=== PATIENT | male | born 1990 | race Caucasian/White ===

== ENCOUNTER 2016-09-10 19:03 | Emergency (ER) | payer MEDICAID ==
[~2016-09-10] VITALS: Ht 152.4 cm; Wt 70.8 kg
[2016-09-10 19:21] VITALS: BP 175/103; PULSE 103; RESP 18; TEMP 98.3; O2SAT 99
[2016-09-10 20:14] LABS: BASOPHILS % (AUTO) 0.7 % (0.0-2.0); EOSINOPHILS # (AUTO) 0.1 K/uL (0.0-0.4); EOSINOPHILS % (AUTO) 1.9 % (0.0-4.0); HEMATOCRIT 30.7 % (36-54); HEMOGLOBIN 10.3 g/dL (14.0-18.0); LYMPHOCYTES # (AUTO) 1.2 K/uL (1.0-5.5); LYMPHOCYTES % (AUTO) 16.9 % (20.5-51.5); MEAN CORPUSCULAR HEMOGLOBIN 29 pg (27-31); MEAN CORPUSCULAR HGB CONC 34 % (32-36); MEAN CORPUSCULAR VOLUME 88 fL (79.0-98.0); MONOCYTES # (AUTO) 0.3 K/uL (0.0-1.0); MONOCYTES % (AUTO) 4.8 % (1.7-9.3); NEUTROPHILS # (AUTO) 5.5 K/uL (1.8-7.7); NEUTROPHILS % (AUTO) 75.7 % (40.0-70.0); PLATELET COUNT (AUTO) 317 K/uL (130-430); RED CELL DISTRIBUTION WIDTH 13.2 % (9.0-15.0); WHITE BLOOD COUNT (AUTO) 7.1 K/uL (4.8-10.8)
[2016-09-10 20:20] LABS: CALCIUM 8.7 mg/dL (8.4-11.0); CREATININE 1.7 mg/dL (0.55-1.30); POTASSIUM 5.3 mmol/L (3.5-5.1)
[2016-09-10 20:23] LABS: PROTHROMBIN TIME 10.5 SECS (9.5-12.5)
[2016-09-10 20:24] LABS: ALBUMIN 3.4 g/dL (3.4-4.8); TOTAL BILIRUBIN 0.2 mg/dL (0.0-1.0); TOTAL PROTEIN, SERUM 7.8 g/dL (6.4-8.3)
[2016-09-10] MEDS ORDERED: VANCOMYCIN HCL 1,000 MG in NS 250 ML IV ONE (20:45)
[2016-09-10] MEDS ORDERED: ONDANSETRON HCL 4 MG/2 ML VIAL IVP ONE (20:45)
[2016-09-10] MEDS ORDERED: NACL 0.9% 1,000 ML IV ONE (20:45)
[2016-09-10] MEDS ORDERED: VANCOMYCIN HCL 1000 MG/VIAL IV ONE (20:57)
[2016-09-10] MEDS ORDERED: cloNIDine HCL 0.1 MG TABLET PO ONE (21:00)
[2016-09-10] MEDS ORDERED: SODIUM POLYSTYRENE SULFONATE 15 GM/60 ML UDBTL PO ONE (21:00)
[2016-09-11 00:02] VITALS: BP 145/98; PULSE 98; RESP 18; TEMP 98.3; O2SAT 99
== END 2016-09-11 00:02 | disposition home or self-care (01) ==
LOC: MERGE 19:03 → SED 19:03
DX: E11.52 Type 2 diabetes mellitus with diabetic peripheral angiopathy with gangrene (principal); F03.90 Unspecified dementia, unspecified severity, without behavioral disturbance, psychotic disturbance, mood disturbance, and anxiety; Z88.6 Allergy status to analgesic agent; Z88.5 Allergy status to narcotic agent; Z88.8 Allergy status to other drugs, medicaments and biological substances
CPT/HCPCS: 36415; 73630; 80053; 83605; 85025; 85610; 85730; 86140; 87040; 96365; 96366; 96375; 99285; J2405; J3370; J7030; J7050

== ENCOUNTER 2017-02-14 16:44 | Inpatient (IN) | payer MEDICAID ==
[2015-07-09 12:00] VITALS: Ht 160 cm; Wt 67.6 kg
[~2017-02-14] VITALS: Ht 160 cm; Wt 67.6 kg
[2017-02-14 16:51] VITALS: BP 188/100; PULSE 92; RESP 18; TEMP 96.4; O2SAT 94
--- NOTE | 2017-02-14 16:59 | NUR ---
BHUMI Ga at bedside examining patient.
[2017-02-14] MEDS ORDERED: NACL 0.9% 1,000 ML IV ONE (17:01)
--- NOTE | 2017-02-14 17:05 | NUR ---
PER PATIENT HE WAS WALKING AND FELT GENERALIZED SEVERE PAIN SO HE CALLED 911.COMPLAINING OF GENERALIZED PAIN 01/22.NOTED WITH DIABETIC ULCER TO RIGHT FOOT;WITH SMALL OPEN AREA;NO BLEEDING;PERIWOUND IS WHITE;WOUND BED IS PINK;NO DRAINAGE.NO OTHER COMPLAIN/INJURY PER PATIENTOR NOTED
--- NOTE | 2017-02-14 17:20 | NUR ---
TRIED TO INSERT IV BUT FAILED.DIRECTOR OF ENTERPRISE ARCHITECTURE TRIED TO DRAW BLOOD BUT FAILED. INFORMED
--- NOTE | 2017-02-14 18:14 | NUR ---
ENCOURAGED PATIENT TO COLLECT URINE SPECIMEN STATED "NOT NOW,MAYBE LATER"
--- NOTE | 2017-02-14 18:26 | NUR ---
ANOTHER RN TRIED TO INSERT IV AGAIN BUT FAILED
[2017-02-14 19:02] LABS: BASOPHILS % (AUTO) 0.6 % (0.0-2.0); EOSINOPHILS # (AUTO) 0.1 K/uL (0.0-0.4); EOSINOPHILS % (AUTO) 1.6 % (0.0-4.0); HEMATOCRIT 28.4 % (36-54); HEMOGLOBIN 9.4 g/dL (14.0-18.0); LYMPHOCYTES # (AUTO) 1.3 K/uL (1.0-5.5); LYMPHOCYTES % (AUTO) 18.5 % (20.5-51.5); MEAN CORPUSCULAR HEMOGLOBIN 30 pg (27-31); MEAN CORPUSCULAR HGB CONC 33 % (32-36); MEAN CORPUSCULAR VOLUME 89 fL (79.0-98.0); MONOCYTES # (AUTO) 0.2 K/uL (0.0-1.0); MONOCYTES % (AUTO) 3.3 % (1.7-9.3); NEUTROPHILS # (AUTO) 5.3 K/uL (1.8-7.7); PLATELET COUNT (AUTO) 272 K/uL (130-430); RED CELL DISTRIBUTION WIDTH 14.6 % (9.0-15.0); WHITE BLOOD COUNT (AUTO) 6.9 K/uL (4.8-10.8)
--- NOTE | 2017-02-14 19:02 | NUR ---
ANOTHER RN TRIED TO INSERT IV BUT FAILED
--- NOTE | 2017-02-14 19:08 | NUR ---
PATIENT ON BED AWAKE.NO IV SITE.ENDORSED ALL CARE TO LOGGING TRACTOR OPERATOR NURSE
[2017-02-14 19:11] LABS: CALCIUM 9.2 mg/dL (8.4-11.0); CREATININE 1.43 mg/dL (0.55-1.30); POTASSIUM 4.9 mmol/L (3.5-5.1)
[2017-02-14 19:14] LABS: INR 0.9 (0.80-1.20); PROTHROMBIN TIME 9.7 SECS (9.5-12.5)
[2017-02-14 19:15] LABS: ALBUMIN 3.6 g/dL (3.4-4.8); TOTAL BILIRUBIN 0.2 mg/dL (0.0-1.0)
--- NOTE | 2017-02-14 19:21 | NUR ---
Patient refuses to provide urine sample. MD moore
--- NOTE | 2017-02-14 19:25 | NUR ---
Medication reconciliation completed with information provided by -PATIENT STATES "NO HOME MEDS". Any prior medication reconciliation on file was reviewed and corrected.
--- NOTE | 2017-02-14 19:43 | NUR ---
Unable to obtain IV access after multiple attempts. MD moore
[2017-02-14 20:05] LABS: BILIRUBIN,URINE NEGATIVE (NEGATIVE); BLOOD, URINE 1+ (NEGATIVE); CLARITY/URINE CLEAR (CLEAR); COLOR,URINE YELLOW (YELLOW); GLUCOSE,URINE 2+ (NEGATIVE); KETONES,URINE NEGATIVE (NEGATIVE); LEUKOCYTE ESTERASE ,URINE NEGATIVE (NEGATIVE); NITRITE, URINE NEGATIVE (NEGATIVE); PROTEIN URINE 2+ (NEGATIVE); UROBILINOGEN,URINE 0.2 (0.2-1.0)
--- NOTE | 2017-02-14 20:12 | NUR ---
Unable to obtain EJ access by BHUMI Ho after multiple attempts.
--- NOTE | 2017-02-14 20:21 | NUR ---
Patient refuses to provide urine. Admit MD Mills aware
[2017-02-14 20:24] LABS: BACTERIA,URINE RARE /HPF (None Seen); MUCUS,URINE None Seen /LPF (None Seen); RBC,URINE 0-3 /HPF (0-3); WBC,URINE 0-3 /HPF (0-3)
--- NOTE | 2017-02-14 20:32 | NUR ---
Patient will be admitted to care of Dr Mills. Admitted to TELE IN unit. Will go to room 135. Belongings list completed. Summary report printed. Report will be given at bedside.
--- NOTE | 2017-02-14 20:40 | NUR ---
Transfer to [facility] via ACLS protocol. Licensed nurse present. IV present no signs or symptoms of infiltration.
--- NOTE | 2017-02-14 20:49 | NUR ---
ADMISSION NOTE Received patient from ER via gurney. Patient admitted with diagnosis of pancreatitis. Patient is awake, alert, oriented X 4. Patient oriented to hospital room, call light, toileting, pain management and safety-teach back done. Personal belongings checked and Belongings List documented. Call light within reach.
[2017-02-14 20:57] VITALS: BP 163/99; RESP 20; TEMP 98.6; O2SAT 95
[2017-02-14] MEDS ORDERED: FLU VACC QS 2017-18(36MOS+)/PF 0.5 ML/SYR SYRINGE I.M. PRN (21:15)
--- NOTE | 2017-02-14 21:30 | NUR ---
Opening notes. Received patient in bed,report from admit nurse; alert/oriented,confused at times, continent b/b,ambulatory;no iv access at this time,the plan is for picc line placement at this time;patient did not want the assign nurse,due to, he does not want to be touch by black; he washed his bed with clorox or clorine, then asked for new bed sheets,also talking to himself at times,now, resting in bed with no distress, call light in reach, bed in low position,bed alarm on.
[2017-02-14] MEDS ORDERED: ONDANSETRON HCL 4 MG/2 ML VIAL IVP PRN (21:45)
[2017-02-14] MEDS ORDERED: ENALAPRILAT DIHYDRATE 1.25 MG/ML VIAL IVP PRN (21:45)
[2017-02-14] MEDS ORDERED: INSULIN ASPART 100 UNITS/ML, 10 ML VIAL (NovoLOG) SUBCUT PRN (22:00)
[2017-02-14] MEDS ORDERED: ACETAMINOPHEN 325 MG TABLET PO PRN (22:00)
[2017-02-15 00:18] VITALS: BP 154/83; PULSE 92; RESP 16; TEMP 99.1; O2SAT 100
[2017-02-15 04:50] VITALS: BP 156/70; PULSE 98; RESP 16; TEMP 98.5; O2SAT 99
--- NOTE | 2017-02-15 06:30 | NUR ---
Closing notes. condition stable, did not sleep at all,last night;refused blood drawn this morning by the laboratory worker,stated that she does not have a license to do it;now, resting in bed with call light in reach, bed in low position, bed alarm on.
[2017-02-15 07:53] VITALS: BP 157/92; PULSE 89; RESP 18; TEMP 98.1; O2SAT 99
--- NOTE | 2017-02-15 08:00 | NUR ---
note Pt resting in bed. Pt is NPO at this time for US of abdomen. Pt refused blood draw this am. Pt let RN take his vital signs this am and answered questions appropriately, though has occasional verbally abusive outbursts. Pt talks to himself and sometimes not coherent in answering questions. No SOB/resp distress or pain/discomfort noted at this time. Call light within reach.
[2017-02-15] MEDS: NACL 0.9% 1,000 ML IV SCH ×3 (08:15→16:51)
[2017-02-15] MEDS: AMPICILLIN SODIUM/SULBACTAM NA 1.5 GM in NS 50 ML IV SCH ×5 (08:16→23:26)
[2017-02-15] MEDS: PANTOPRAZOLE SODIUM 40 MG/VIAL (PROTONIX) IVP SCH ×2 (08:16→11:23)
--- NOTE | 2017-02-15 09:32 | NUR ---
Consult was called Re:Possible OM Foot ,DM Spoke with Nayely From Dr Santana office .
--- NOTE | 2017-02-15 10:30 | NUR ---
Note Pt let blood draw be done at this time. pt was given something to eat as US of abdomen had been refused. pt resting in bed and no needs noted at this time. Pt speaks verbally abusive to staff and refuses to let any staff near him for VS or any tests or hygiene care at this time. Call light within reach.
[2017-02-15 11:20] LABS: BASOPHILS # (AUTO) 0.1 K/uL (0.0-0.2); BASOPHILS % (AUTO) 1.3 % (0.0-2.0); EOSINOPHILS # (AUTO) 0.1 K/uL (0.0-0.4); EOSINOPHILS % (AUTO) 1.3 % (0.0-4.0); HEMOGLOBIN 8.6 g/dL (14.0-18.0); LYMPHOCYTES # (AUTO) 1.4 K/uL (1.0-5.5); LYMPHOCYTES % (AUTO) 31.1 % (20.5-51.5); MEAN CORPUSCULAR HEMOGLOBIN 29 pg (27-31); MEAN CORPUSCULAR HGB CONC 33 % (32-36); MEAN CORPUSCULAR VOLUME 88 fL (79.0-98.0); MONOCYTES # (AUTO) 0.4 K/uL (0.0-1.0); MONOCYTES % (AUTO) 7.9 % (1.7-9.3); NEUTROPHILS # (AUTO) 2.5 K/uL (1.8-7.7); NEUTROPHILS % (AUTO) 58.4 % (40.0-70.0); PLATELET COUNT (AUTO) 265 K/uL (130-430); RED BLOOD CELL COUNT(AUTO) 2.94 MIL/uL (4.2-6.2); RED CELL DISTRIBUTION WIDTH 14.3 % (9.0-15.0)
[2017-02-15 11:25] LABS: WHITE BLOOD COUNT (AUTO) 4.5 K/uL (4.8-10.8)
[2017-02-15 11:32] LABS: ALBUMIN 3.3 g/dL (3.4-4.8); BILIRUBIN,DIRECT 0.1 mg/dL (0.0-0.3); CALCIUM 9.3 mg/dL (8.4-11.0); CREATININE 1.44 mg/dL (0.55-1.30); POTASSIUM 4.5 mmol/L (3.5-5.1); TOTAL BILIRUBIN 0.4 mg/dL (0.0-1.0)
[2017-02-15 11:42] VITALS: BP 161/91; PULSE 126; RESP 16; TEMP 98.8; O2SAT 98
[2017-02-15] MEDS ORDERED: LISINOPRIL 10 MG TABLET (PRINIVIL) PO ONE (12:15)
--- NOTE | 2017-02-15 12:30 | NUR ---
note Dr Mills on the floor spoke to pt at 1135am. Orders were given - pt's tele unit was dc'd and returned to cytogenetics technologist at 1215pm. pt allowed RN to take his blood sugar for before lunch value. No needs noted. Pt just rec'd his regular lunch tray at this time. Call light within reach.
--- NOTE | 2017-02-15 12:41 | NUR ---
DC Planning: Requested by dr Mills to transfer pt. to [facility] contracted [facility]p dt pt. is non compliance with care and expecting delay discharge. Cm verified with kenny Madsen at [facility] who said that [facility] has no capacitated hospital and no need for the transfer. Dr. Mills made aware. Case TRK# [id number], tel# [phone] -- TVKENNY CARMONA.
--- NOTE | 2017-02-15 14:30 | NUR ---
NOTE PT RESTING IN BED. NO SOB/RESP DISTRESS OR PAIN/DISCOMFORT NOTED. PT'S DAUGHTER AT BEDSIDE AT THIS TIME. IVF'S INFUSING WELL AT THIS TIME. CALL LIGHT WITHIN REACH. Addendum: 02/15/17 at 1705 by Cindi Dinero RN NOTE WRITTEN ON WRONG PT AT THIS TIME.
--- NOTE | 2017-02-15 16:30 | NUR ---
NOTE DR NO ON THE FLOOR. ASSESSMENT OF PT COMPLETED AND DR NO SPOKE TO PT'S DAUGHTER AT THIS TIME. ORDERS GIVEN. NO NEEDS NOTED. CALL LIGHT WITHIN REACH. Addendum: 02/15/17 at 1705 by Cindi Dinero RN NOTE WRITTEN ON WRONG PT AT THIS TIME.
--- NOTE | 2017-02-15 17:00 | NUR ---
NOTE DR BENITEZ WAS CALLED AND AN UPDATE ON PT AND DR ALEXANDRE'S RECOMMENDATION WAS GIVEN.
[2017-02-15] MEDS: INSULIN ASPART 100 UNITS/ML, 10 ML VIAL (NovoLOG) SUBCUT PRN (17:27)
--- NOTE | 2017-02-15 18:00 | NUR ---
NOTE PT SITTING UP IN BED EATING HIS DINNER. PT VERY PICKY ON WHAT HE WILL LET STAFF DO AND THINGS THAT HE REFUSES. MD ARE AWARE OF ALL THAT PT DOES PER SHIFT DURING REPORT. PT STATES HE HAS NO NEEDS AT THIS TIME. NO ABDOMINAL PAIN/DISCOMFORT NOTED. CALL LIGHT WITHIN REACH.
--- NOTE | 2017-02-15 19:05 | NUR ---
OPENING NOTES RECEIVED REPORT AT BEDSIDE. PT IS SITTING UP IN BED RESTING. ALERT AND AWAKE. ORIENTED TO PLACE. UNWILLING TO ANSWER ORIENTATION TO TIME. PT IS VERBALLY COMBATIVE. PT CONTINUES TO SPEAK TOWARDS THE EMPTY RIGHT SIDE OF HIS BED. PT DENIES HEARING VOICES. PT DENIES SEEING ANYONE ELSE IN THE ROOM. RESPIRATIONS EVEN AND UNLABORED. NO S/S OF ACUTE DISTRESS NOTED. BED IN LOWEST POSITION. CALL LIGHT WITHIN REACH.
[2017-02-15 20:00] VITALS: BP 144/89; PULSE 89; RESP 18; TEMP 99; O2SAT 99
--- NOTE | 2017-02-15 20:51 | NUR ---
BLOOD SUGAR 61 PATIENT AWAKE AND ALERT. SKIN DRY AND WARM TO TOUCH. NO S/S OF HYPOGLYCEMIA. OFFERED PT. JUICE AND A SANDWICH. PATIENT SITTING UPRIGHT IN BED EATING AND DRINKING. NO S/S OF ACUTE DISTRESS NOTED. BED IN LOWEST POSITION, BED ALARM ON, CALL LIGHT WITHIN REACH. WILL CONTINUE TO MONITOR FREQUENTLY.
--- NOTE | 2017-02-15 22:00 | NUR ---
RN ROUNDS PT REQUESTING AN IV INSERTION IN LOWER EXTREMITY. PT IS DIABETIC. PT IS REQUESTING PAIN MEDICATION. WILL PAGE
--- NOTE | 2017-02-15 23:27 | NUR ---
RN ROUNDS PT REQUESTED SANDWICH AND JUICE. PT PROVIDED SNACKS. PT APPEARS TO BE HAVING AUDIO AND VISUAL HALLUCINATIONS.
--- NOTE | 2017-02-16 01:00 | NUR ---
RN ROUNDS NO CHANGE IN CONDITION. PT STABLE, SLEEPING.
--- NOTE | 2017-02-16 03:04 | NUR ---
RN ROUNDS PT SLEEPING, VISIBLE RISE AND FALL OF CHEST NOTED. NO S/S OF ACUTE DISTRESS NOTED. FALL PRECAUTIONS IN PLACE, CALL LIGHT WITHIN REACH.
[2017-02-16] MEDS: NACL 0.9% 1,000 ML IV SCH ×2 (03:38→13:06)
--- NOTE | 2017-02-16 04:50 | NUR ---
PT REFUSED VITAL SIGNS SECOND TIME PT REFUSED TO ALLOW TEST PILOT TO TAKE HIS VITAL SIGNS.
[2017-02-16] MEDS: AMPICILLIN SODIUM/SULBACTAM NA 1.5 GM in NS 50 ML IV SCH ×2 (06:00→12:00)
--- NOTE | 2017-02-16 06:45 | NUR ---
ACCUCHECK 259 SLIDING SCALE INSULIN PROVIDED, 6 UNITS.
[2017-02-16] MEDS: INSULIN ASPART 100 UNITS/ML, 10 ML VIAL (NovoLOG) SUBCUT PRN (06:56)
--- NOTE | 2017-02-16 07:12 | NUR ---
CLOSING NOTES PT IS RESTING IN BED QUIETLY, RESPIRATIONS EVEN AND UNLABORED. NO S/S OF ACUTE DISTRESS NOTED. BED IN LOWEST POSITION, CALL LIGHT WITHIN REACH. WILL ENDORSE CARE TO DAYSHIFT NURSE.
[2017-02-16 08:00] VITALS: BP 157/83; PULSE 73; RESP 16; TEMP 98.7; O2SAT 100
[2017-02-16 08:22] LABS: CALCIUM 9.3 mg/dL (8.4-11.0); CREATININE 1.54 mg/dL (0.55-1.30); POTASSIUM 4.7 mmol/L (3.5-5.1)
--- NOTE | 2017-02-16 08:46 | NUR ---
Nutrition Update Jamari Scale 18 noted. Pt admitted for acute pancreatitis, abd pain, dehydration. Diet: regular, CCHO low carb-45 gm BMI: 26.4 kg/m2 RD to follow per nutrition care standards.
[2017-02-16] MEDS: PANTOPRAZOLE SODIUM 40 MG/VIAL (PROTONIX) IVP SCH (09:00)
[2017-02-16] MEDS ORDERED: LISINOPRIL 10 MG TABLET (PRINIVIL) PO SCH (09:00)
--- NOTE | 2017-02-16 09:50 | NUR ---
ATTEMPTED TO ADMINISTER LISINOPRIL. PATIENT INITIALLY REFUSED TO OPEN HIS EYES. THEN PRESENTED HIS HAD IN A PALM-SIDEWAYS FASHION TO TAKE HIS PILL.
--- NOTE | 2017-02-16 11:00 | NUR ---
Social Service Note: Pt referred by physician to [employer] and crm due to pt being homeless. RIDE OPERATOR met with pt at bedside; pt with eyes close; pt responds slowly when name called. Pt states that he lives with friends. Pt unable to tell RIDE OPERATOR where he will go upon discharge. RIDE OPERATOR has left pt with homeless assistance resources, substance abuse treatment facilities, outpatient mental health providers, and [facility] clinics. RIDE OPERATOR will remain available for support and will follow up as needed.
--- NOTE | 2017-02-16 12:05 | NUR ---
PATIENT IS NOT COOPERATIVE. DR BENITEZ IS MADE AWARE OF MRSA IN NARES AND PT REFUSAL FOR MEDICATIONS AND PROCEDURES.
[2017-02-16 12:16] VITALS: BP 147/84; PULSE 77; RESP 16; TEMP 98.7; O2SAT 100
[2017-02-16 13:03] VITALS: BP 147/84; PULSE 83; RESP 18; TEMP 98; O2SAT 100
--- NOTE | 2017-02-16 13:21 | NUR ---
PATIENT REMAINS LETHARGIC AND UNCOOPERATIVE.
== END 2017-02-16 15:15 | disposition home or self-care (01) | DRG 344 ==
LOC: SED 16:44 → STU 20:38 → SMU 02-15 12:20
PROVIDERS: ADMIT Internal Medicine; ATTEND Internal Medicine
DX: E10.69 Type 1 diabetes mellitus with other specified complication (principal); M86.8X7 Other osteomyelitis, ankle and foot; E10.621 Type 1 diabetes mellitus with foot ulcer; K85.90 Acute pancreatitis without necrosis or infection, unspecified; K74.60 Unspecified cirrhosis of liver; L03.115 Cellulitis of right lower limb; E86.0 Dehydration; L97.519 Non-pressure chronic ulcer of other part of right foot with unspecified severity; D64.9 Anemia, unspecified; Z53.29 Procedure and treatment not carried out because of patient's decision for other reasons; Z91.14 Patient's other noncompliance with medication regimen; Z88.6 Allergy status to analgesic agent; Z89.421 Acquired absence of other right toe(s)
CPT/HCPCS: 36415; 73590-TC; 80048; 80053; 80076; 81000-TC; 82150-TC; 82962; 83605; 83690-TC; 85025; 85610-TC; 85730-TC; 87040-TC; 87081; 99285; J0295

== ENCOUNTER 2017-04-14 22:57 | Emergency (ER) | payer MEDICAID ==
[~2017-04-14] VITALS: Ht 160 cm; Wt 63.5 kg
[2017-04-14 23:05] VITALS: BP_SYST 158
[2017-04-14 23:38] LABS: BILIRUBIN,URINE NEGATIVE (NEGATIVE); BLOOD, URINE 1+ (NEGATIVE); CLARITY/URINE CLEAR (CLEAR); COLOR,URINE YELLOW (YELLOW); GLUCOSE,URINE 3+ (NEGATIVE); KETONES,URINE NEGATIVE (NEGATIVE); LEUKOCYTE ESTERASE ,URINE NEGATIVE (NEGATIVE); NITRITE, URINE NEGATIVE (NEGATIVE); PH,URINE 5.5 (5.0-8.0); PROTEIN URINE 3+ (NEGATIVE); UROBILINOGEN,URINE 0.2 (0.2-1.0)
[2017-04-14 23:46] LABS: BASOPHILS % (AUTO) 0.6 % (0.0-2.0); EOSINOPHILS # (AUTO) 0.1 K/uL (0.0-0.4); EOSINOPHILS % (AUTO) 1.4 % (0.0-4.0); HEMATOCRIT 33.8 % (36-54); LYMPHOCYTES # (AUTO) 1.1 K/uL (1.0-5.5); LYMPHOCYTES % (AUTO) 13.7 % (20.5-51.5); MEAN CORPUSCULAR HEMOGLOBIN 28 pg (27-31); MEAN CORPUSCULAR HGB CONC 33 % (32-36); MEAN CORPUSCULAR VOLUME 86 fL (79.0-98.0); MONOCYTES # (AUTO) 0.5 K/uL (0.0-1.0); MONOCYTES % (AUTO) 6.7 % (1.7-9.3); NEUTROPHILS # (AUTO) 6.4 K/uL (1.8-7.7); NEUTROPHILS % (AUTO) 77.6 % (40.0-70.0); PLATELET COUNT (AUTO) 345 K/uL (130-430); RED BLOOD CELL COUNT(AUTO) 3.94 MIL/uL (4.2-6.2); RED CELL DISTRIBUTION WIDTH 13.5 % (9.0-15.0); WHITE BLOOD COUNT (AUTO) 8.1 K/uL (4.8-10.8)
[2017-04-14 23:47] LABS: BACTERIA,URINE MODERATE /HPF (None Seen); HYALINE CASTS, URINE 0-10 /LPF (None Seen); WBC,URINE 0-3 /HPF (0-3); YEAST,URINE Few /HPF (None Seen)
[2017-04-14 23:50] LABS: C-REACTIVE PROTEIN QUANT 2.3 mg/dL (0-0.5); CALCIUM 8.8 mg/dL (8.4-11.0); CREATININE 2.53 mg/dL (0.55-1.30); POTASSIUM 4.7 mmol/L (3.5-5.1)
[2017-04-15] MEDS ORDERED: NACL 0.9% 1,000 ML IV ONE (00:15)
[2017-04-15] MEDS ORDERED: INSULIN REGULAR, HUMAN 10 UNITS/0.1 ML INJ IVP ONE (00:15)
[2017-04-15 00:27] LABS: ERYTHROCYTE SEDIMENTATION RATE 55 MM/HR (0-15)
[2017-04-15 00:51] LABS: BARBITURATE, URINE NEGATIVE (NEG <=200); BENZODIAZEPINE, URINE NEGATIVE (NEG <=150); CANNABINOID, URINE NEGATIVE (NEG <=50); COCAINE, URINE NEGATIVE (NEG <=150); METHAMPHETAMINES SCREEN,URINE POSITIVE (NEG <=500); OPIATE, URINE POSITIVE (NEG <=100); PHENCYCLIDINE SCREEN,URINE NEGATIVE (NEG <=25); UR TRICYCLIC ANTIDEPRESSANTS NEGATIVE (NEG <=300); URINE AMPHETAMINE POSITIVE (NEG <=500); URINE METHADONE NEGATIVE (NEG <=200); URINE OXYCODONE SCREEN NEGATIVE (NEG <=100); URINE PROPOXYPHENE SCREEN NEGATIVE (NEG <=300)
[2017-04-15 04:53] VITALS: BP_SYST 130
== END 2017-04-15 04:53 | disposition home or self-care (01) ==
LOC: SED 22:57
DX: G89.29 Other chronic pain (principal); M79.671 Pain in right foot; E11.65 Type 2 diabetes mellitus with hyperglycemia; F19.10 Other psychoactive substance abuse, uncomplicated; Z91.14 Patient's other noncompliance with medication regimen; Z90.49 Acquired absence of other specified parts of digestive tract; Z90.89 Acquired absence of other organs; Z88.6 Allergy status to analgesic agent; Z88.5 Allergy status to narcotic agent
CPT/HCPCS: 36415; 73630; 80048; 80307; 81000; 82962; 85025; 85651; 86140; 87086; 96361; 96374; 99285; J1815; J7030

== ENCOUNTER 2017-05-22 15:26 | Emergency (ER) | payer MEDICAID ==
[~2017-05-22] VITALS: Ht 160 cm; Wt 69.9 kg
[2017-05-22 15:42] VITALS: BP_SYST 121
--- NOTE | 2017-05-22 16:27 | NUR ---
BROUGHT BACK TO BED #7 AND REPORT GIVEN TO SILVIO
--- NOTE | 2017-05-22 16:38 | NUR ---
MD Villaseñor at bedside.
--- NOTE | 2017-05-22 16:40 | NUR ---
Patient eloped after cursing at MD Villaseñor, ambulated out steady gait noted.
== END 2017-05-22 16:41 | disposition left against medical advice (07) ==
LOC: SED 15:26
DX: E11.621 Type 2 diabetes mellitus with foot ulcer (principal); L97.519 Non-pressure chronic ulcer of other part of right foot with unspecified severity; K21.9 Gastro-esophageal reflux disease without esophagitis; K74.60 Unspecified cirrhosis of liver; Z88.6 Allergy status to analgesic agent; Z88.5 Allergy status to narcotic agent; Z53.20 Procedure and treatment not carried out because of patient's decision for unspecified reasons
CPT/HCPCS: 99281